=== PATIENT | female | born 1965 | race Caucasian/White ===

== ENCOUNTER 2018-12-27 18:52 | Emergency (ER) | payer BC ==
--- NOTE | 2018-12-27 19:49 | ED Physician Chart ---
ED Chief Complaint/HPI - Patient Information Date Seen:: 12/27/18 Time Seen:: 19:44 Chief Complaint:: 53 YR OLD FEMALE WITH BACK PAIN FOR FEW DAYS SOME URINARY SXS History of Present Illness:: 53 YR OLD ENGLISH FEMALE WITH BACK PAIN BURNING ON URINATION NO TRAUMA NO NV CD NO CP OR SOB Allergies:: Allergies Allergy/AdvReac Type Severity Reaction Status Date / Time No Known Allergies Allergy Verified 12/27/18 19:11 Vitals:: Vital Signs - 8 hr 12/27/18 19:14 Temp 97.2 F HR 99 RR 18 BP 154/85 O2 Sat % 98 ED Review of Systems - Review of Systems General/Constitutional: No fever Skin: No skin lesions Head: No headache Eyes: No loss of vision ENT: No earache Neck: No neck pain Cardio Vascular: No chest pain Pulmonary: No SOB GI: No vomiting G/U: Dysuria Musculoskeletal: Bone or joint pain Psychiatric: No prior psych history Hematopoietic: No bruising Allergic/Immuno: No urticaria Neurological: No syncope ED Past Medical History - Past Medical History Past Medical History: Other (THYROID DZ HYPERTENSION) Family Medical History - Family Member Mother History Unknown: Yes ED Assessment - Assessment General Assessment: BACK PAIN DYSURIA ED Septic Shock - . Is Septic Shock (SBP<90, OR Lactate>4 mmol\L) present?: No - <6hrs of presentation: Vital Signs: Vital Signs - 8 hr 12/27/18 19:14 Temp 97.2 F HR 99 RR 18 BP 154/85 O2 Sat % 98 ED Reassessment (Disposition) - Reassessment Reassessment:: BACK PAIN - Diagnosis Diagnosis:: R/O UTI - Aftercare/Follow up Instructions Aftercare/Follow-Up Instructions:: Counseled pt regarding lab results/diagnosis & need follow up Medication Prescribed:: BACTRIM DS - Patient Disposition Discharge/Transfer:: Home Condition at Disposition:: Stable
[2018-12-27 20:59] LABS: URINE SOURCE RANDOM
[2018-12-27 21:01] LABS: URINE BILIRUBIN NEGATIVE (NEGATIVE); URINE BLOOD NEGATIVE (NEGATIVE); URINE GLUCOSE (UA) NEGATIVE (NEGATIVE); URINE KETONE NEGATIVE (NEGATIVE); URINE LEUKOCYTE ESTERASE NEGATIVE (NEGATIVE); URINE NITRATE NEGATIVE (NEGATIVE); URINE PH 5.5 (4.6 - 8.0); URINE PROTEIN NEGATIVE (NEGATIVE); URINE UROBILINOGEN 0.2 E.U./dL (0.2 - 1.0)
[2018-12-27 21:13] LABS: URINE CLARITY CLEAR (CLEAR); URINE COLOR STRAW; URINE MICROSCOPIC INDICATED? NO
--- NOTE | 2018-12-28 12:26 | Diagnostic Imaging Report ---
Exam: Lumbar sacral spine. HISTORY: Pain Findings: Multiple views of lumbar sacral spine reviewed. The study demonstrates vertebral bodies of normal height with preserved intervertebral disc spaces. There is no evidence of fracture dislocation or subluxation. There is no evidence of spondylolysis or spondylolisthesis. No prevertebral soft tissue swelling is noted. The pedicles are intact. The visualized posterior elements are normal. IMPRESSION: Normal examination lumbar sacral spine.
== END 2018-12-27 21:49 | disposition home or self-care (01) ==
LOC: ER 18:52
DX: M54.5 Low back pain (principal); R30.0 Dysuria
CPT/HCPCS: 72100-TC; 81003-TC; 81025-TC